=== PATIENT | male | born 1965 | race Caucasian/White ===

== ENCOUNTER → 2018-12-06 09:49 | Outpatient (CLI) | payer OTHER, SELFPAY ==
--- NOTE | 2018-12-06 10:05 | RAD_ITS ---
PROCEDURE: ARTHROGRAM - RIGHT SHOULDER REASON FOR EXAM: Male, 53 years old. Right shoulder pain FLUOROSCOPY TIME (if supplied): (0:30) minutes/seconds STERILE BARRIER TECHNIQUE: The following sterile barrier precautions were used during the procedure: hand hygiene; use of 2% chlorhexidine aseptic; use of a cap, mask, sterile gown, sterile gloves, sterile full body drape, and a large sterile sheet. PROCEDURE/TECHNIQUE: The risks, benefits, and alternatives to the procedure were explained to patient, and the patient agreed to the procedure and signed a consent form for the procedure. A timeout was performed to confirm the patient's identity, the type of procedure, to be performed and the site of entry. Injection Information: Mixture containing 0.2 mL of Omniscan, 10 mL of Omnipaque 300 and 10 mL of normal saline. Number of images obtained: 6 TECHNIQUE: Under fluoroscopic guidance using sterile technique and after infiltration of the skin and subcutaneous soft tissues with 10 mL of lidocaine 1% a 22-gauge needle is introduced in the shoulder joint. 10 ml of the above mentioned mixture were injected in the shoulder joint. FINDINGS: The joint capsule is normal in size. There is no abnormal opacification of the subdeltoid bursa to suggest a full-thickness rotator cuff tear. There is no evidence of intra-articular loose bodies. RAD/Arthrogram Shoulder w/ MRI IMPRESSION: There is no evidence of intra-articular loose bodies. Electronically Signed: Kwasi Edward, at 8:27 EDT Tel , Service support ,
--- NOTE | 2018-12-06 11:30 | MRI_ITS ---
STUDY: MR LEFT SHOULDER ARTHROGRAPHY REASON FOR EXAM: Left shoulder pain status post dislocation. TECHNIQUE: Standardized fat and water weighted pulse sequences were obtained in all 3 orthogonal planes after intra-articular instillation of dilute gadolinium. COMPARISON: Arthrogram obtained prior to MRI. FINDINGS: There is mild supraspinatus tendinosis and a small intrasubstance partial-thickness tear of the distal supraspinatus tendon at the greater tuberosity insertion (T2 coronal images 8, 9) measuring 0.3 cm in length. There is no intravasation of contrast in the supraspinatus tendon to indicate a tear communicating with the articular surface. Normal infraspinatus tendon. There is mild iatrogenic contrast in the subscapularis tendon. Normal teres minor tendon. Normal supraspinatus muscle. Normal infraspinatus muscle. Normal subscapularis muscle. Normal teres minor muscle. Normal glenohumeral articulation. There is a small subchondral cyst in the anterior inferior glenoid. There is cystic change of the posterior lateral aspect of the humeral head. There is no Hill-Sachs lesion. Normal biceps labral complex. Normal intracapsular long biceps tendon. There is a tear of the posterior labrum (T1 axial images 10-12). There is also a tear of the anterior labrum (ABER images 7, 8). Normal capsulo- ligamentous complex. Normal rotator interval. There is acromioclavicular arthrosis without substantial undersurface osteophytes (T2 sagittal image 7). There is a Type II morphology (curved), with a neutral orientation. There is no subacromial-subdeltoid bursal fluid. Normal visualized coracohumeral and coracoacromial ligaments. Normal deltoid muscle. Normal trapezius muscle. MRI/Upper Ext Jt Only W/Contrast IMPRESSION: Posterior and anterior labral tears. Small intrasubstance partial-thickness tear and mild tendinosis of the supraspinatus tendon. Acromioclavicular arthrosis. Electronically Signed: Evre Hill MD at 12:36 EDT Tel , Service support ,
== END ==
PROVIDERS: Family Provider Family Medicine; PCP Family Medicine; Referring Provider Specialist; Visit Provider Specialist
DX: M25.512 Pain in left shoulder (principal)
CPT/HCPCS: 23350; 73222; 77002; A9577; Q9967

== ENCOUNTER → 2019-06-24 11:41 | Outpatient (CLI) | payer OTHER, SELFPAY ==
--- NOTE | 2019-06-24 14:10 | STRESSREP_ITS ---
Stress Test Report Date: 06-24-19 Procedure: Exercise tolerance test Indications: Chest pain Consent: Per the patient Procedure: The patient exercised on a Humberto protocol for 10 minutes and 30 seconds completing Stage III and 1 minute and 30 seconds of Stage IV achieving a peak heart rate of 169 bpm (101 % predicted maximal heart rate) with a peak blood pressure 190/84 mmHg and a peak MET capacity of approximately 12 MET's. The baseline ECG demonstrated normal sinus rhythm. The peak exercise ECG demonstrated no obvious ECG changes. There was an isolated PVC during exercise. The functional capacity was considered good. The patient had no complaint of chest discomfort during exercise or recovery. The examination was discontinued secondary to shortness of breath and leg discomfort. Impression: 1. Technically adequate (percent predicted maximal heart rate greater than 85%) exercise tolerance test 2. Peak exercise ECG with no obvious ECG changes 3. There was an isolated PVC during exercise This note was generated with [employer] software. It may contain incorrect words, spelling, and punctuation that were not noted in checking the note before signing.
== END ==
PROVIDERS: Family Provider Family Medicine; PCP Family Medicine
DX: I20.8 Other forms of angina pectoris (principal)
CPT/HCPCS: 93017